=== PATIENT | male | born 1965 | race Caucasian/White ===

== ENCOUNTER 2023-03-07 11:49 | Inpatient (IN) | payer BC ==
--- OUTSIDE RECORDS SUMMARY | 2023-03-07 12:02 | XMS REPORT | Continuity of Care Document ---
:1965 Author Organization [facility] t Address [address] [place] [address] Care Team Providers Name Role Phone PCP, PATIENT DOES NOT HAVE A Primary Care Physician Kerrie Viveros RN, Paty Jones Attending Clinician Unavailable Only, Pedro Luis Db Test Attending Clinician Unavailable Yoana Lyons Attending Clinician YOANA KIM Attending Clinician Unavailable Payers Payer Name Policy Type Policy Number Effective Date Expiration Date S ource Problems Condition Condition Condition Status Onset Resolution Last Treating Co mments Source Name Details Category Date Date Treatment Clinician Date Status Status Disease Active [facility] post total post total 11-10 [place] 00 Me dical t t Branch Allergies, Adverse Reactions, Alerts Allergy Allergy Status Severity Reaction(s) Onset Inactive Treating Comm ents Source Name Type Date Date Clinician NO KNOWN Drug Active Univers ALLERGIE Class ity of [facility] Social History Social Habit Start Date Stop Date Quantity Comments Source History of tobacco Snuff User [facility] use Medical Branch Exposure to Not sure [facility] SARS-CoV-2 (event) Medica l Branch Alcohol intake 2015-11-17 2015-11-17 0 /d [facility] 00:00:00 00:00:00 Medical Branch Sex Ass[birth year] At [birth year] [facility] 00:00:00 00:00:00 Medical Branch Smoking Status Start Date Stop Date Source Never smoker [facility] Branch Medications Ordered Filled Start Stop Current Ordering Indication Dosage Frequency Signature Comments Components Source Medication Medication Date Date Medication? Clinician (SIG) Name Name No known No Univers medications - ity of 06:51: [address] No known No Univers medications 7- ity of 06:51: [address] Procedures This patient has no known procedures. Encounters Start End Encounter Admission Attending Care Care Encounter Source Date/Time Date/Time Type Type Clinicians Facility Department ID 2021-05-08 2021-05-08 Letter SPENSER Viveros [id number] Univers 00:00:00 00:00:00 (Out) Paty SINGH [id number] it y of [facility] [id number] Man as [id number] [address] 2021-05-06 2021-05-06 Laboratory Only, Ang Db Test [facility] [id number] Univers 13:15:00 13:30:00 Only Yoana Kim [id number] ity of [place] [id number] Man as GWENDOLYN?BLEA [phone] [address] MEDICAL OFFICE BUILDING 2021-05-06 2021-05-06 Outpatient R JULIO [facility] [id number] Univers 13:15:00 13:22:28 YOANA cordova o f [facility] Results This patient has no known results.
[2023-03-07] MEDS ORDERED: ONDANSETRON 4 MG/2 ML VIAL ONE (12:19)
[2023-03-07 12:26] LABS: Absolute Lymphocytes (CBC) 0.8 K/uL (0.7-4.9); Hematocrit 44.5 % (39.6-49.0); MCV 96.2 fL (80-100); MPV 6.9 fL (7.6-11.3); Platelets 297 thou/uL (152-406); RBC Red Blood Cell Count 4.62 M/uL (4.33-5.43)
[2023-03-07] MEDS ORDERED: MORPHINE 4 MG/ML SYR ONE ×2 (12:30→14:10)
[2023-03-07 12:44] LABS: Albumin 3.5 g/dL (3.4-5.0); Potassium 4.4 mEq/L (3.5-5.1); Protein, Total 7.1 g/dL (6.4-8.2); Troponin High Sensitivity 7.5 pg/mL (<58.9)
--- NOTE | 2023-03-07 13:09 | RAD REPORT ---
EXAM DESCRIPTION: CTAbdomen Pelvis W Contrast - 03/07/2023 12:59 pm CLINICAL HISTORY: Abdominal pain. vomiting, back pain COMPARISON: No comparisons TECHNIQUE: Biphasic CT imaging of the abdomen and pelvis was performed with 100 ml non-ionic IV cont rast. All CT scans are performed using dose optimization technique as appropriate and may include automated exposure control or mA/KV adjustment according to patient size. FINDINGS: The lung bases are clear. The liver demonstrates diffuse fatty infiltration. Spleen, pancreas, adrenal glands and kidneys are w ithin normal limits. No bowel obstruction, free air, free fluid or abscess. There is thickening of the wall and mucosa of the rectosigmoid colon. This is particularly inferior rectum. Prominent sigmoid diverticulosis coli w ithout diverticulitis. The appendix is normal. No evidence of significant lymphadenopathy. No suspicious bony findings. IMPRESSION: Mild to moderate rectosigmoid wall thickening and minimal surrounding inflammatory alba es would favor colitis. Prominent sigmoid diverticulosis coli also present. Colonoscopy would be quang mmended for direct visualization and to exclude malignancy. Diffuse fatty liver.
--- NOTE | 2023-03-07 13:56 | EDPHYS ---
Physician Documentation [facility] Name: Thomas Hadley Age: 57 yrs Sex: Male : 1965 Arrival Date: 03/07/2023 Time: 11:49 Bed 15 Private MD: ED Physician Iban Hollingsworth HPI: 03/07 13:43 This 57 yrs old Male presents to ER via EMS with complaints of Low Back Pain. rn 13:43 The patient presents with pain that is acute. The symptoms are located in the low back. rn The pain does not radiate. Onset: The symptoms/episode began/occurred 6 day(s) ago. Modifying factors: The patient symptoms are alleviated by nothing, the patient symptoms are aggravated by Vomiting. Associated signs and symptoms: Pertinent positives: abdominal pain, nausea, vomiting, Pertinent negatives: incontinence, urinary retention. Severity of symptoms: At their worst the symptoms were moderate, in the emergency department the symptoms are unchanged. The patient has not experienced similar symptoms in the past. Patient reports 5 to 6 days of abdominal pain/vomiting/diarrhea. Now with low back pain. No fever. Generalized weakness. Reports on antibiotics recently for sinus problems. Sees Dr. Best.. Historical: - Allergies: 12:27 No Known Allergies; ko1 - PMHx: 12:27 Hypertensive disorder; ko1 - Immunization history:: Adult Immunizations up to date. - Social history:: Smoking status: . - Family history:: not pertinent. - Hospitalizations: : No recent hospitalization is reported. ROS: 13:43 Constitutional: Negative for fever, chills, and weight loss, Cardiovascular: Negative rn for chest pain, palpitations, and edema, Respiratory: Negative for shortness of breath, cough, wheezing, and pleuritic chest pain, Abdomen/GI: Positive for abdominal pain/vomiting/diarrhea. No blood in stool. Back: Positive for low back pain MS/Extremity: Negative for injury and deformity, Skin: Negative for injury, rash, and discoloration, Neuro: Positive for generalized weakness Exam: 12:20 ECG was reviewed by the Attending Physician. rn 13:43 Constitutional: This is a well developed, well nourished patient who is awake, alert, rn appears uncomfortable and concerned Head/Face: Normocephalic, atraumatic. ENT: Dry mucous membranes Neck: Trachea midline, no masses palpated, and no cervical lymphadenopathy. Supple, full range of motion without nuchal rigidity, or vertebral point tenderness. No Meningismus. Cardiovascular: Regular rate and rhythm. No pulse deficits. Respiratory: No increased work of breathing, no retractions or nasal flaring. Abdomen/GI: Soft, mid abdominal tenderness. No rebound Back: No spinal tenderness. No costovertebral tenderness. Skin: Warm, dry MS/ Extremity: Pulses equal, no cyanosis. Neurovascular intact. Full, normal range of motion. Equal circumference. Neuro: Awake and alert, GCS 15 Vital Signs: 12:00 BP 134 / 96; Pulse 120; Resp 18; Temp 98.1(O); Pulse Ox 99% ; ko1 12:38 BP 135 / 103; Pulse 113; Resp 18; Pulse Ox 98% ; ko1 13:25 BP 144 / 95; Pulse 99; Resp 16; Pulse Ox 100% ; ko1 14:26 Weight 117.93 kg; ap3 MDM: 11:52 Patient medically screened. rn 13:48 Differential diagnosis: UTI, Colitis, diverticulitis, aneurysm, enteritis, dehydration, internet technology manager kidney injury. Data reviewed: vital signs, nurses notes, lab test result(s), radiologic studies, CT scan, and as a result, I will admit patient. Consideration of Admission/Observation Patient was admitted/placed on observation. Escalation of care including admission/observation considered. Counseling: I had a detailed discussion with the patient and/or guardian regarding the historical points, exam findings, and any diagnostic results supporting the discharge/admit diagnosis, lab results, radiology results, the need for further work-up and treatment in the hospital. Response to treatment: the patient's symptoms have markedly improved after treatment, and as a result, I will admit patient. ED course: Patient with colitis on CAT scan, which fits with clinical picture of vomiting and diarrhea, has also resulted in acute kidney injury. Lactate and blood cultures ordered. Antibiotics ordered and to be given after blood cultures obtained. Patient heart rate improved with fluid administration. Will give a second liter of bolus.. 15:46 ED course: After fluids initiated, heart rate down to 82 and blood pressure of 158/98. rn Sepsis reevaluation complete. 03/07 11:53 Order name: CBC with Diff; Complete Time: 13:25 rn 03/07 11:53 Order name: CMP; Complete Time: 13:25 rn 03/07 11:53 Order name: Lipase; Complete Time: 13:25 rn 03/07 11:53 Order name: Urinalysis w/ reflexes rn 03/07 11:53 Order name: Troponin High Sensitivity; Complete Time: 13:25 rn 03/07 13:26 Order name: Blood Culture Adult (2) 03/07 13:26 Order name: Lactate w/ 2H reflex if indic.; Complete Time: 14:25 rn 03/07 14:24 Order name: C.difficile hb 03/07 14:24 Order name: Stool Culture hb 03/07 14:24 Order name: Fecal Leukocyte Stain 03/07 14:24 Order name: Ova And Parasites 03/07 15:53 Order name: Stool Culture EDNY 03/07 15:53 Order name: Fecal Leukocyte Stain EDNY 03/07 15:53 Order name: Ova and Parasites EDNY 03/07 17:26 Order name: Lactate Sepsis 2 HR Follow-up EDNY 03/07 11:53 Order name: CT Abd/Pelvis - IV Contrast Only; Complete Time: 13:25 03/07 11:53 Order name: EKG; Complete Time: 11:53 03/07 11:53 Order name: IV Saline Lock; Complete Time: 12:20 rn 03/07 11:53 Order name: Labs collected and sent; Complete Time: 12:20 03/07 11:53 Order name: EKG - Nurse/Tech; Complete Time: 12:12 rn EC:20 Rate is 109 beats/min. Rhythm is regular. QRS [place] is Normal. MS interval is normal. rn QRS interval is normal. QT interval is normal. No Q waves. T waves are Normal. No ST changes noted. Clinical impression: Sinus tachycardia. Interpreted by me. Reviewed by me. Administered Medications: 12:20 Drug: NS 0.9% IV 1000 ml IV at 1 bolus Per protocol; 1000 mL bolus Route: IV; Rate: 1 jl7 bolus; Site: left antecubital; 13:30 Follow up: Response: No adverse reaction; IV Status: Completed infusion; IV Intake: ko1 1000ml 12:20 Drug: Ondansetron IVP 4 mg IVP once; over 2 minutes Route: IVP; Site: left antecubital; jl7 13:00 Follow up: Response: Vomiting decreased ko1 12:35 Drug: morphine IVP or IV 4 mg IVP once over 4 mins Route: IVP; Infused Over: 4 mins; ko1 Site: left antecubital; 13:00 Follow up: Response: Pain is unchanged, physician notified ko1 13:59 Drug: Piperacillin-Tazobactam IVPB 3.375 grams IVPB once over 60 mins; (mix in NS 100 ko1 mL) Route: IVPB; Infused Over: 60 mins; Site: left antecubital; 14:30 Follow up: IV Status: Completed infusion; IV Intake: 250ml ko1 14:00 Drug: morphine IVP or IV 4 mg IVP once over 4 mins Route: IVP; Infused Over: 4 mins; ko1 Site: left antecubital; 14:20 Follow up: Response: Pain is decreased ko1 14:11 Drug: NS 0.9% IV 1000 ml IV at 1000 ml once Route: IV; Rate: 1000 ml; Site: left ko1 antecubital; 14:50 Drug: NS 0.9% IV (30 ml/kg) 30 ml/kg IV at bolus once; Sepsis Protocol, subtract ko1 boluses already given Route: IV; Rate: bolus; Site: left antecubital; Disposition Summary: 03/07/23 13:55 Hospitalization Ordered Notes: Hospitalization Status: Inpatient Admission rn Provider: Sylvester Hollingsworth rn Location: Telemetry/[facility] (Inpatient) rn Condition: Stable rn Problem: new rn Symptoms: have improved rn Bed/Room Type: Standard rn Room Assignment: 202(03/07/23 16:06) bd Diagnosis - Infectious gastroenteritis and colitis, unspecified rn - Acute kidney failure, unspecified rn - Dehydration rn Forms: - Medication Reconciliation Form rn - SBAR form rn - Leadership Thank You Letter rn Signatures: Dispatcher [employer] Jolanta aHdley Roman, MD MD rn Leal, Jahala, RN RN jl7 Danielle Morris RN RN ko1 Corrections: (The following items were deleted from the chart) 16:06 13:55 rn bd
--- NOTE | 2023-03-07 13:56 | ER ---
Nurse's Notes [facility] Name: Thomas Hadley Age: 57 yrs Sex: Male : 1965 Arrival Date: 03/07/2023 Time: 11:49 Bed 15 Private MD: Diagnosis: Infectious gastroenteritis and colitis, unspecified;Acute kidney failure, unspecified;Dehydration Presentation: 03/07 12:00 Chief complaint: EMS states: low back pain, nausea and vomiting, weakness. Coronavirus ko1 screen: At this time, the client does not indicate any symptoms associated with coronavirus-19. Ebola Screen: No symptoms or risks identified at this time. Initial Sepsis Screen: Does the patient meet any 2 criteria? No. Patient's initial sepsis screen is negative. Does the patient have a suspected source of infection? No. Patient's initial sepsis screen is negative. Risk Assessment: Do you want to hurt yourself or someone else? Patient reports no desire to harm self or others. Onset of symptoms was March 07, 2023. 12:00 Method Of Arrival: EMS: [facility] ko1 12:00 Acuity: YUNG 2 ko1 Triage Assessment: 12:27 General: Appears distressed, ill, Behavior is cooperative, appropriate for age. Pain: ko1 Complains of pain in lumbar area, low back area and left low back. Historical: - Allergies: 12:27 No Known Allergies; ko1 - PMHx: 12:27 Hypertensive disorder; ko1 - Immunization history:: Adult Immunizations up to date. - Social history:: Smoking status: . - Family history:: not pertinent. - Hospitalizations: : No recent hospitalization is reported. Screenin:39 [facility] ED Fall Risk Assessment (Adult) History of falling in the last 3 months, ko1 including since admission Yes- single mechanical fall (1 pt) Confusion or Disorientation No (0 pts) Intoxicated or Sedated No (0 pts) Impaired Gait No (0 pts) Mobility Assist Device Used No (0 pt) Altered Elimination No (0 pt) Score/Fall Risk Level 0 - 2 = Low Risk Oriented to surroundings, Maintained a safe environment, Educated pt \T\ family on fall prevention, incl call for assistance when getting out of bed, Assessed \T\ reinforced patient's understanding of fall precautions, Provided non-skid footwear, Hourly rounding (assess needs \T\ fall precautionary measures) done, Used ambulatory aids as needed (educated on \T\ assisted with), Used gait belt as appropriate. Abuse screen: Denies threats or abuse. Denies injuries from another. Nutritional screening: Has had N/V for 3 or more days. Tuberculosis screening: No symptoms or risk factors identified. Assessment: 12:39 Neuro: No deficits noted. Cardiovascular: Rhythm is sinus tachycardia. Respiratory: No ko1 deficits noted. GI: Reports diarrhea, nausea, vomiting. : No deficits noted. EENT: No deficits noted. Derm: No deficits noted. Musculoskeletal: No deficits noted. 16:25 Reassessment: attempted to call report, someone will call me back. ko1 Vital Signs: 12:00 BP 134 / 96; Pulse 120; Resp 18; Temp 98.1(O); Pulse Ox 99% ; ko1 12:38 BP 135 / 103; Pulse 113; Resp 18; Pulse Ox 98% ; ko1 13:25 BP 144 / 95; Pulse 99; Resp 16; Pulse Ox 100% ; ko1 14:26 Weight 117.93 kg; ap3 ED Course: 11:52 Patient arrived in ED. rn 11:52 Iban Hollingsworth MD is Attending Physician. rn 11:55 Danielle Morris, SUHA is Primary Nurse. ko1 12:18 Initial lab(s) drawn, by me, sent to lab. Inserted saline lock: 20 gauge in left jl7 antecubital area, using aseptic technique. Blood collected. 12:20 EKG done, by ED staff, reviewed by Iban Hollingsworth MD. jl7 12:23 Troponin High Sensitivity Sent. ko1 12:23 CBC with Diff Sent. ko1 12:23 CMP Sent. ko1 12:23 Lipase Sent. ko1 12:27 Triage completed. ko1 12:27 Arm band placed on right wrist. Patient placed in an exam room, on a stretcher, on ko1 potline monitor, on pulse oximetry, Patient notified of wait time. 12:39 Patient has correct armband on for positive identification. Bed in low position. Call ko1 light in reach. Side rails up X2. Client placed on continuous cardiac and pulse oximetry monitoring. NIBP monitoring applied. monitor car operator on. Door closed. Noise minimized. Lights dimmed. Warm blanket given. 13:01 CT Abd/Pelvis - IV Contrast Only In Process Unspecified. EDMS 13:54 Lactate w/ 2H reflex if indic. Sent. ko1 13:54 Blood Culture Adult (2) Sent. ko1 13:55 Sylvester Hollingsworth MD is Hospitalizing Provider. rn 17:36 No provider procedures requiring assistance completed. Patient admitted, IV remains in ko1 place. 17:36 Provided Education on: NA. ko1 Administered Medications: 12:20 Drug: NS 0.9% IV 1000 ml IV at 1 bolus Per protocol; 1000 mL bolus Route: IV; Rate: 1 jl7 bolus; Site: left antecubital; 13:30 Follow up: Response: No adverse reaction; IV Status: Completed infusion; IV Intake: ko1 1000ml 12:20 Drug: Ondansetron IVP 4 mg IVP once; over 2 minutes Route: IVP; Site: left antecubital; jl7 13:00 Follow up: Response: Vomiting decreased ko1 12:35 Drug: morphine IVP or IV 4 mg IVP once over 4 mins Route: IVP; Infused Over: 4 mins; ko1 Site: left antecubital; 13:00 Follow up: Response: Pain is unchanged, physician notified ko1 13:59 Drug: Piperacillin-Tazobactam IVPB 3.375 grams IVPB once over 60 mins; (mix in NS 100 ko1 mL) Route: IVPB; Infused Over: 60 mins; Site: left antecubital; 14:30 Follow up: IV Status: Completed infusion; IV Intake: 250ml ko1 14:00 Drug: morphine IVP or IV 4 mg IVP once over 4 mins Route: IVP; Infused Over: 4 mins; ko1 Site: left antecubital; 14:20 Follow up: Response: Pain is decreased ko1 14:11 Drug: NS 0.9% IV 1000 ml IV at 1000 ml once Route: IV; Rate: 1000 ml; Site: left ko1 antecubital; 14:50 Drug: NS 0.9% IV (30 ml/kg) 30 ml/kg IV at bolus once; Sepsis Protocol, subtract ko1 boluses already given Route: IV; Rate: bolus; Site: left antecubital; Medication: 17:36 VIS not applicable for this client. ko1 Intake: 13:30 IV: 1000ml; Total: 1000ml. ko1 14:30 IV: 250ml; Total: 1250ml. ko1 Output: 12:38 Stool: 1 (Loose Stool) ; Total: 0ml. ko1 13:26 Gastric: 100ml (Emesis); Total: 100ml. ko1 Outcome: 13:55 Decision to Hospitalize by Provider. rn 17:35 Patient left the ED. ko1 17:36 Admitted to Tele accompanied by tech, room 202, with chart, ko1 17:36 Condition: improved 17:36 Instructed on the need for admit, Demonstrated understanding of instructions, Signatures: Dispatcher [employer] EDMS Iban Hollingsworth MD MD rn Leal, Jahala RN RN jl7 Chayo Hickey RN RN ap3 Danielle Morris RN RN ko1
[2023-03-07] MEDS ORDERED: PIPERACIL/TAZO 3.375 GM VIAL IV ONE (13:57)
[2023-03-07] MEDS ORDERED: NA CHLORIDE 0.9% 250 ML ONE ×2 (13:59→14:55)
[2023-03-07] MEDS ORDERED: NA CHLORIDE 0.9% 1,000 ML ONE (14:27)
[2023-03-07] MEDS: Ringers Lactate 1,000 ML IV SCH (15:52)
[2023-03-07] MEDS ORDERED: MORPHINE 2 MG/ML SYR IV PRN (15:52)
[2023-03-07] MEDS: HYDROMORPHONE HCL 1 MG/ML INJ IV PRN ×2 (16:05→20:15)
--- NOTE | 2023-03-07 16:30 | P.HP ---
Certification for Inpatient Patient admitted to: Inpatient With expected LOS: >2 Midnights Patient will require the following post-hospital care: None Practitioner: I am a practitioner with admitting privileges, knowledge of patient current condition, hospital course, and medical plan of care. Services: Services provided to patient in accordance with Admission requirements found in Title 42 Section 412.3 of the Code of Federal Regulations Patient History Date of Service: 03/07/23 Reason for admission: Rectosigmoid colitis History of Present Illness: 57-year-old male with history of hypertension presents to the emergency department with chief complaint of 7 days of nausea/vomiting/diarrhea. He had a near syncopal episode while coming out of the bathroom and fell on his back onto a couch with a keyboard on it is also complaining of mid low back pain. He was recently on antibiotics for sinusitis which has not resolved. He was evaluated in the emergency department his labs were significant for leukocytosis with white blood cell count of 15.7, sodium 126 chloride 94 bicarb 15 glucose 169 creatinine 1.43 GFR 57 AST 117 ALT 95 lipase [address] abdomen pelvis with IV contrast was performed revealed mild to moderate rectosigmoid wall thickening and minimal surrounding inflammatory changes would favor colitis. Prominent sigmoid diverticulosis is also present. Colonoscopy would be recommended for direct visualization to exclude malignancy. Diffuse fatty liver. ED provider wishes to admit for further evaluation management of rectosigmoid colitis/dehydration/chronic acidosis Allergies No Known Allergies Allergy (Unverified 03/07/23 15:51) - Past Medical/Surgical History -: Hypertension -: none Psychosocial/ Personal History: Lives at home with family - Family History Family History: Reviewed- Non-Contributory - Social History Smoking Status: Never smoker Alcohol use: Yes CD- Drugs: No Caffeine use: Yes Place of Residence: Home Review of Systems 10-point ROS is otherwise unremarkable Gastrointestinal: Nausea, Vomiting, Abdominal Pain Musculoskeletal: Back Pain Physical Examination - Physical Exam General: Alert, In no apparent distress, Oriented x3 HEENT: Atraumatic, PERRLA Neck: Supple Respiratory: Clear to auscultation bilaterally, Normal air movement Cardiovascular: Regular rate/rhythm, Normal S1 S2 Gastrointestinal: Normal bowel sounds, No tenderness Musculoskeletal: Tenderness (Back paraspinal tenderness bilaterally) Neurological: Normal speech, Normal affect - Studies Laboratory Data (last 24 hrs) 03/07/23 03/07/23 12:19 12:19 WBC 15.70 H Hgb 15.7 Hct 44.5 Plt Count 297 Sodium 126 L Potassium 4.4 BUN 19 H Creatinine 1.43 H Glucose 169 H Total Bilirubin 1.0 AST 117 H ALT 95 H Alkaline Phosphatase 94 Lipase 135 H Assessment and Plan - Plan Assessment: ZOILA, lactic acidosis secondary to N/V/D, rectosigmoid colitis Possible septic shock secondary to rectosigmoid colitis Hypertension Plan: ZOILA, lactic acidosis secondary to N/V/D, rectosigmoid colitis Possible septic shock secondary to rectosigmoid colitis Lactic acidosis, ZOILA likely primarily secondary to GI losses for the last 7 days Patient also likely contributing with rectosigmoid colitis, being criteria for septic shock Received 30 cc/kg IV fluid bolus in ED as well as blood cultures and lactate level which was 7, repeat lactate pending We will cover with antibiotics Cipro/Flagyl N.p.o. with ice chips tonight, advance as tolerated Test for C. difficile, other stool studies sent given recent antibiotic use for sinusitis Discussed need for outpatient colonoscopy in 6 to 8 weeks after discharge Hypertension Hold oral hypertensive meds at this time DVT PPX: Lovenox Code status: Full Discharge Plan: Home Plan to discharge in: 72 Hours - Advance Directives Does patient have a Living Will: No Does patient have a Durable POA for Healthcare: No - Code Status/Comfort Care Code Status Assessed: Yes (Full code) Critical Care: No Time Spent Managing Pts Care (In Minutes): 55
[2023-03-07] MEDS: METRONIDAZOLE 500mg IVPB 500 MG/100 ML BAG IV SCH (17:00)
[2023-03-07 18:10] VITALS: BMI 31.6
[2023-03-07] MEDS: ONDANSETRON 4 MG/2 ML VIAL IV PRN ×2 (18:36→22:17)
[2023-03-07] MEDS: ENOXAPARIN 40 MG/0.4 ML SQ SCH (18:36)
[2023-03-07] MEDS: CIPROFLOXACIN 400mg IV 400 MG/200 ML BAG IV SCH (20:15)
[2023-03-07 20:45] LABS: Potassium 4.1 mEq/L (3.5-5.1)
[2023-03-08] MEDS: HYDROMORPHONE HCL 1 MG/ML INJ IV PRN ×6 (00:21→20:44)
[2023-03-08] MEDS: METRONIDAZOLE 500mg IVPB 500 MG/100 ML BAG IV SCH ×3 (00:22→16:56)
[2023-03-08] MEDS: Ringers Lactate 1,000 ML IV SCH ×3 (03:09→15:52)
[2023-03-08 04:00] LABS: Absolute Lymphocytes (CBC) 0.8 K/uL (0.7-4.9); Hematocrit 36.9 % (39.6-49.0); Lymphocytes % 10.3 % (15.3-44.8); Platelets 168 thou/uL (152-406)
[2023-03-08 04:14] LABS: Albumin 2.7 g/dL (3.4-5.0); Bilirubin Total 1.2 mg/dL (0.2-1.0); Magnesium 2.3 mg/dL (1.6-2.4); Phosphorus 2.9 mg/dL (2.5-4.9); Protein, Total 5.5 g/dL (6.4-8.2); Thyroid Stimulating Hormone 1.43 uIU/mL (0.358-3.740)
[2023-03-08] MEDS: ONDANSETRON 4 MG/2 ML VIAL IV PRN (04:34)
[2023-03-08 06:03] LABS: UR SODIUM < 15 mmol/L (27-287)
[2023-03-08] MEDS: ENOXAPARIN 40 MG/0.4 ML SQ SCH (09:07)
[2023-03-08] MEDS: LACTOBACILLUS/ACIDOPHILUS TAB PO SCH ×2 (09:09→20:35)
[2023-03-08] MEDS: CIPROFLOXACIN 400mg IV 400 MG/200 ML BAG IV SCH ×2 (10:28→20:36)
[2023-03-08 11:15] LABS: Urine Bacteria None Seen /HPF (<20); Urine Bilirubin NEGATIVE (Negative); Urine Blood Negative (Negative); Urine Clarity Extremely Turbid (Clear); Urine Color Yellow (Yellow); Urine Glucose TRACE (Negative); Urine Protein 1+ (Negative); Urine RBC <5 /HPF (None Seen); Urine Urobilinogen Normal (Normal)
[2023-03-08 11:17] LABS: Specific Gravity > 1.030 (1.005-1.030)
[2023-03-08] MEDS ORDERED: HYDROCODONE/APAP 5/325 MG TAB PO PRN (13:50)
--- NOTE | 2023-03-08 14:10 | P.PN ---
Subjective Date of Service: 03/08/23 Chief Complaint: Rectosigmoid colitis Patient is complaining of low back pain. Diarrhea has resolved. He reports an episode of vomiting this morning. No recorded fever. Physical Examination - Vital Signs Temperature: 98.3 F Blood Pressure: 157/93 Pulse: 85 Respirations: 18 Pulse Ox (%): 96 Assessment And Plan - Plan Physical Exam General: Alert, In no apparent distress, Oriented x3 HEENT: Atraumatic, PERRLA Neck: Supple Respiratory: Clear to auscultation bilaterally, Normal air movement Cardiovascular: Regular rate/rhythm, Normal S1 S2 Gastrointestinal: Normal bowel sounds, No tenderness Musculoskeletal: No tenderness. Neurological: Normal speech, Normal affect, no focal motor deficit. Diagnosis ZOILA Lactic acidosis secondary to N/V/D, Rectosigmoid colitis Hypovolemic shock Hypertension Plan: ZOILA, lactic acidosis secondary to N/V/D, rectosigmoid colitis Possible septic shock secondary to rectosigmoid colitis Lactic acidosis, ZOILA likely primarily secondary to dehydration from GI losses. Received 30 cc/kg IV fluid bolus in ED as well as blood cultures and lactate level which was 7, repeat lactate significantly improved. Continue Cipro/Flagyl. No diarrhea today, no sample for C. difficile. C. difficile canceled. Advance diet to clear liquid. Discussed need for outpatient colonoscopy in 6 to 8 weeks after discharge Hypertension Resume oral hypertensive meds. Fall/syncope Back pain Syncope and fall likely secondary to dehydration. Blood pressure has been stable Analgesics for back pain Increase activity as tolerated. DVT PPX: Lovenox Code status: Full Discharge Plan: Home
[2023-03-08] MEDS: AMLODIPINE 5 MG TAB PO SCH (15:16)
[2023-03-08] MEDS: SERTRALINE HCL 50 MG TAB PO SCH (15:16)
[2023-03-08] MEDS: VALSARTAN 160 MG TAB PO SCH (15:17)
[2023-03-09] MEDS: METRONIDAZOLE 500mg IVPB 500 MG/100 ML BAG IV SCH ×3 (00:47→18:17)
[2023-03-09] MEDS: Ringers Lactate 1,000 ML IV SCH ×4 (00:47→20:14)
[2023-03-09] MEDS: HYDROMORPHONE HCL 1 MG/ML INJ IV PRN ×4 (00:56→20:12)
[2023-03-09] MEDS: ONDANSETRON 4 MG/2 ML VIAL IV PRN ×3 (01:27→18:16)
[2023-03-09 03:48] LABS: Absolute Lymphocytes (CBC) 0.9 K/uL (0.7-4.9); Hematocrit 33.8 % (39.6-49.0); Lymphocytes % 11.3 % (15.3-44.8); MCV 96.6 fL (80-100); MPV 7.2 fL (7.6-11.3); Platelets 129 thou/uL (152-406)
[2023-03-09 04:02] LABS: Albumin 2.6 g/dL (3.4-5.0); Bilirubin Total 1.1 mg/dL (0.2-1.0); Potassium 3.8 mEq/L (3.5-5.1); Protein, Total 5.6 g/dL (6.4-8.2)
[2023-03-09] MEDS ORDERED: POTASSIUM CL SA 10 MEQ TAB PO ONE (09:00)
[2023-03-09] MEDS: ENOXAPARIN 40 MG/0.4 ML SQ SCH (10:47)
[2023-03-09] MEDS: CIPROFLOXACIN 400mg IV 400 MG/200 ML BAG IV SCH ×2 (10:47→20:11)
[2023-03-09] MEDS: AMLODIPINE 5 MG TAB PO SCH (10:48)
[2023-03-09] MEDS: LACTOBACILLUS/ACIDOPHILUS TAB PO SCH ×2 (10:49→20:12)
[2023-03-09] MEDS: VALSARTAN 160 MG TAB PO SCH (10:49)
[2023-03-09] MEDS: SERTRALINE HCL 50 MG TAB PO SCH (10:49)
[2023-03-09 12:26] VITALS: O2SAT 98
--- NOTE | 2023-03-09 17:29 | EKG ---
Test Date: 2023-03-07 Test Time: 12:07:52 Molder Apprentice: SASCHA MEASUREMENT RESULTS: Intervals: Rate: 109 MT: 164 QRSD: 86 QT: 332 QTc: 447 [place]: P: 71 MT: 164 QRS: 67 T: 68 INTERPRETIVE STATEMENTS: Sinus tachycardia Otherwise normal ECG Compared to ECG 02/06/2023 13:08:22 Sinus rhythm no longer present Electronically Signed On 03-09-23 17:23:19 SANE RN by David Dong
[2023-03-09] MEDS ORDERED: SODIUM CHLORIDE 0.9% 10ML INJ IV PRN (17:33)
--- NOTE | 2023-03-09 17:33 | P.PN ---
Subjective Date of Service: 03/09/23 Chief Complaint: Rectosigmoid colitis Patient states his low back pain is better. He reports an episode of vomiting this afternoon, otherwise he was tolerating liquid diet. Physical Examination - Vital Signs Temperature: 98.6 F Blood Pressure: 154/90 Pulse: 116 Respirations: 16 Pulse Ox (%): 96 Assessment And Plan - Plan Physical Exam General: Alert, In no apparent distress, Oriented x3 HEENT: Atraumatic, PERRLA Neck: Supple Respiratory: Clear to auscultation bilaterally, Normal air movement Cardiovascular: Regular rate/rhythm, Normal S1 S2 Gastrointestinal: Normal bowel sounds, No tenderness Musculoskeletal: No tenderness. Neurological: Normal speech, Normal affect, no focal motor deficit. Diagnosis ZOILA Lactic acidosis secondary to N/V/D, Rectosigmoid colitis Hypovolemic shock Hypertension Plan: ZOILA, lactic acidosis secondary to N/V/D, rectosigmoid colitis Possible septic shock secondary to rectosigmoid colitis Lactic acidosis, ZOILA likely primarily secondary to dehydration from GI losses. Received 30 cc/kg IV fluid bolus in ED as well as blood cultures and lactate level which was 7, repeat lactate significantly improved. Continue Cipro/Flagyl. No more diarrhea. No sample for C. difficile Advance diet to clear liquid. Discussed need for outpatient colonoscopy in 6 to 8 weeks after discharge. Trial of PPI for gastritis given persistent nausea. Hypertension Resume oral hypertensive meds. Fall/syncope Back pain Syncope and fall likely secondary to dehydration. Blood pressure has been stable Analgesics for back pain Activity as tolerated. DVT PPX: Lovenox Code status: Full Discharge Plan: Home
[2023-03-09 17:39] LABS: Potassium 3.8 mEq/L (3.5-5.1)
[2023-03-09] MEDS ORDERED: AMLODIPINE 5 MG TAB PO ONE (18:57)
[2023-03-09] MEDS: PANTOPRAZOLE 40 MG INJ IVP SCH (20:11)
[2023-03-10] MEDS: METRONIDAZOLE 500mg IVPB 500 MG/100 ML BAG IV SCH ×2 (01:26→09:00)
[2023-03-10] MEDS: HYDROMORPHONE HCL 1 MG/ML INJ IV PRN (01:34)
[2023-03-10 03:01] LABS: Absolute Lymphocytes (CBC) 0.9 K/uL (0.7-4.9); Hematocrit 35.3 % (39.6-49.0); MCV 95.9 fL (80-100); MPV 7.2 fL (7.6-11.3); Platelets 117 thou/uL (152-406); RBC Red Blood Cell Count 3.68 M/uL (4.33-5.43)
[2023-03-10 03:21] LABS: Albumin 2.7 g/dL (3.4-5.0); Bilirubin Total 1.2 mg/dL (0.2-1.0); Magnesium 1.9 mg/dL (1.6-2.4); Phosphorus 2.5 mg/dL (2.5-4.9); Potassium 3.9 mEq/L (3.5-5.1); Protein, Total 5.9 g/dL (6.4-8.2)
[2023-03-10] MEDS: Ringers Lactate 1,000 ML IV SCH (07:52)
[2023-03-10] MEDS ORDERED: AMLODIPINE 10 MG TAB PO SCH (09:00)
[2023-03-10] MEDS: LACTOBACILLUS/ACIDOPHILUS TAB PO SCH (09:00)
[2023-03-10] MEDS: ENOXAPARIN 40 MG/0.4 ML SQ SCH (09:00)
[2023-03-10] MEDS ORDERED: POTASSIUM CL SA 10 MEQ TAB PO ONE (09:00)
[2023-03-10] MEDS: PANTOPRAZOLE 40 MG INJ IVP SCH (09:00)
[2023-03-10] MEDS: CIPROFLOXACIN 400mg IV 400 MG/200 ML BAG IV SCH (09:00)
[2023-03-10] MEDS: SERTRALINE HCL 50 MG TAB PO SCH (09:00)
[2023-03-10] MEDS: VALSARTAN 160 MG TAB PO SCH (09:00)
--- NOTE | 2023-03-10 09:04 | P.DS ---
Admission Date: 03/07/23 Discharge Date: 03/10/23 Disposition: ROUTINE DISCHARGE Discharge Condition: FAIR Reason for Admission: Rectosigmoid colitis Brief History of Present Illness: 57-year-old male with history of hypertension presents to the emergency department with chief complaint of 7 days of nausea/vomiting/diarrhea. He had a near syncopal episode while coming out of the bathroom and fell on his back onto a couch with a keyboard on it so he was also complaining of mid low back pain. He was recently on antibiotics for sinusitis which has not resolved. He was evaluated in the emergency department his labs were significant for leukocytosis with white blood cell count of 15.7, sodium 126 chloride 94 bicarb 15 glucose 169 creatinine 1.43 GFR 57 AST 117 ALT 95 lipase [address] abdomen pelvis with IV contrast was performed revealed mild to moderate rectosigmoid wall thickening and minimal surrounding inflammatory changes would favor colitis. Prominent sigmoid diverticulosis is also present. Diffuse fatty liver. Patient was admitted for further management. Hospital Course: Diagnosis ZOILA Lactic acidosis secondary to N/V/D, Rectosigmoid colitis Hypovolemic shock Hypertension Hyponatremia Patient was admitted to the medical floor and the following medical problems addressed: ZOILA, lactic acidosis secondary to N/V/D, rectosigmoid colitis Lactic acidosis, ZOILA likely primarily secondary to dehydration from GI losses. Received 30 cc/kg IV fluid bolus in ED as well as blood cultures and lactate level which was 7, repeat lactate significantly improved. Pt treated with IV Cipro/Flagyl. No more diarrhea so he could not provide sample for C. difficile Patient tolerated diet advancement. He tolerated full liquid diet. Discussed need for outpatient colonoscopy in 6 to 8 weeks after discharge. Trial of PPI for gastritis given persistent nausea which improved. Hypertension Continued oral hypertensive meds. Fall/syncope Back pain Syncope and fall likely secondary to dehydration. Blood pressure has been stable He was given analgesics for back pain Vital Signs/Physical Exam: Temp Pulse Resp BP Pulse Ox 97.9 F 73 18 154/80 H 97 03/09/23 21:37 03/09/23 21:37 03/10/23 02:04 03/10/23 04:55 03/10/23 02:04 General: Alert, In no apparent distress, Oriented x3 HEENT: Mucous membr. moist/pink Neck: JVD not distended Respiratory: Clear to auscultation bilaterally, Normal air movement Cardiovascular: No edema, Regular rate/rhythm, Normal S1 S2 Gastrointestinal: Normal bowel sounds, Soft and benign, Non-distended Musculoskeletal: No swelling Integumentary: No rashes, No cyanosis Neurological: Normal strength at 5/5 x4 extr Laboratory Data at Discharge: WBC 6.60 thou/uL (4.3-10.9) 03/10/23 02:24 Hgb 12.5 g/dL (13.6-17.9) L 03/10/23 02:24 Hct 35.3 % (39.6-49.0) L 03/10/23 02:24 Plt Count 117 thou/uL (152-406) L 03/10/23 02:24 Sodium 129 mEq/L (136-145) L 03/10/23 02:24 Potassium 3.9 mEq/L (3.5-5.1) 03/10/23 02:24 BUN 7 mg/dL (7-18) 03/10/23 02:24 Creatinine 0.78 mg/dL (0.70-1.30) 03/10/23 02:24 Glucose 103 mg/dL (74-106) 03/10/23 02:24 Phosphorus 2.5 mg/dL (2.5-4.9) 03/10/23 02:24 Magnesium 1.9 mg/dL (1.6-2.4) 03/10/23 02:24 Total Bilirubin 1.2 mg/dL (0.2-1.0) H 03/10/23 02:24 AST 49 U/L (15-37) H 03/10/23 02:24 ALT 44 U/L (16-61) 03/10/23 02:24 Alkaline Phosphatase 67 U/L (45-117) 03/10/23 02:24 Lipase 135 U/L (13-75) H 03/07/23 12:19 Home Medications: Amlodipine Besylate 5 mg PO DAILY 03/07/23 Sertraline [Zoloft*] 50 mg PO DAILY 03/07/23 Valsartan 320 mg PO DAILY 03/07/23 Ciprofloxacin HCl [Cipro] 500 mg PO BID #10 tab 03/10/23 Hydrocodone 5/APAP 325 [[place] 5/325*] 1 tab PO Q6H PRN #15 tab 03/10/23 Pantoprazole Sodium [Protonix] 40 mg PO DAILY #30 tab 03/10/23 metroNIDAZOLE [Metronidazole] 500 mg PO TID #15 tab 03/10/23 New Medications: Ciprofloxacin HCl [Cipro] 500 mg PO BID #10 tab metroNIDAZOLE [Metronidazole] 500 mg PO TID #15 tab Hydrocodone 5/APAP 325 [[place] 5/325*] 1 tab PO Q6H PRN #15 tab PRN Reason: Pain Scale 5-7 (Moderate) Pantoprazole Sodium [Protonix] 40 mg PO DAILY #30 tab Followup: Eveline Flores DO [Primary Care Provider] - Time spent managing pt's care (in minutes): 36
[2023-03-10 10:35] VITALS: BP 168/95; TEMP 97.4
== END 2023-03-10 10:29 | disposition home or self-care (01) | DRG 682 ==
LOC: ER 11:49 → ERHOLD 14:20 → 2ND 16:57
PROVIDERS: ADMIT Hospitalist; ATTEND Internal Medicine
DX: N17.9 Acute kidney failure, unspecified (principal); R57.1 Hypovolemic shock; A09 Infectious gastroenteritis and colitis, unspecified; E87.1 Hypo-osmolality and hyponatremia; E87.20 Acidosis, unspecified; I10 Essential (primary) hypertension; E86.0 Dehydration; Z79.899 Other long term (current) drug therapy
CPT/HCPCS: 36415; 74177; 80048; 80053; 81001; 83605; 83690; 83735; 83930; 83935; 84100; 84132; 84300; 84439; 84443; 84484; 85025; 87040; 93005; 96361; 96365; 96375; 99285; J0744; J1170; J1650; J2405; J2543; J7030; J7050; J7120; Q9967

== ENCOUNTER 2023-04-08 09:42 | Day surgery (SDC) | payer BC ==
[2023-04-08] MEDS: OXYMETAZOLINE HCL 0.05% 15ML NAS ONE ×5 (10:05→13:27)
[2023-04-08] MEDS ORDERED: Ringers Lactate 1,000 ML IV ONE (10:26)
[2023-04-08] MEDS ORDERED: ONDANSETRON 4 MG/2 ML VIAL ONE (11:08)
[2023-04-08] MEDS ORDERED: ROCURONIUM 50 MG/5 ML VIAL IV ONE (11:08)
[2023-04-08] MEDS ORDERED: MIDAZOLAM HCL 2 MG/2 ML INJ ONE (11:08)
[2023-04-08] MEDS ORDERED: LIDOCAINE 1% MPF 5 ML VIAL ONE (11:08)
[2023-04-08] MEDS ORDERED: propofoL 200 MG/20 ML VIAL IV ONE (11:08)
[2023-04-08] MEDS ORDERED: dexAMETHasone 10 MG/ML VIAL ONE (11:08)
[2023-04-08] MEDS ORDERED: KETAMINE HCL IN 0.9 % NACL 50 MG/5 ML SYRINGE IV ONE (11:08)
[2023-04-08] MEDS ORDERED: FENTANYL CITR 100 MCG/2 ML ONE (11:08)
[2023-04-08] MEDS ORDERED: BACITRACIN OINTMENT 14 GM TUBE TOP ONE (12:46)
[2023-04-08] MEDS ORDERED: LIDOCAINE HCL/EPINEPHRINE 20 ML MDV ONE (12:46)
[2023-04-08] MEDS ORDERED: OXYMETAZOLINE HCL 0.05% 15ML NAS ONE (13:30)
[2023-04-08] MEDS ORDERED: HYDRALAZINE HCL 20 MG/ML VIAL ONE (13:31)
[2023-04-08] MEDS: HYDROMORPHONE HCL 1 MG/ML INJ ONE ×4 (14:45→15:05)
--- NOTE | 2023-04-08 14:47 | P.OP ---
Date of Service: 04/08/23 Preoperative Diagnosis: Chronic maxillary sinusitis Postoperative diagnosis: Same Procedure: Bilateral nasal endoscopy with maxillary antrostomy and removal of tissue Surgeon: Shannon Best MD Irrigation Installation Specialist: None Indication for procedure: The patient presented with longstanding right maxillary sinus opacification with complaint of postnasal drainage. Preoperative CT demonstrated a moderate size mucous retention cyst in the floor of the left sphenoid sinus which was increased in size compared to earlier st udies a few years ago. The risks, benefits, and alternatives to surgical procedure were discussed with the patient and/or family and they agreed to proceed. Surgical findings: Small to medium mucous retention cyst in the floor of the left maxillary sinus. Large mucous retention cyst with abnormal contents and and possible fungal ball within the mucous retention cyst IV Fluids: Crystalloid, 600 mL Implants/Packing: Posisep dissolvable nasal dressing to both nasal cavities Estimated Blood Loss: 30ml Complications: None Description of procedure in detail: The patient was brought to the operating room. They were placed under general anesthesia via oral endotracheal tube. The head of bed was turned 90 degrees. The nasal hairs were trimmed. The nasal cavity was examined with the nasal speculum and headlight with the following findings: No significant abnormalities or anatomic variations. The nasal cavity was packed with Afrin-soaked pledgets in preparation for the procedure. The patient was draped in a standard fashion for nasal surgery. A 0 degree endoscope was then used to perform a nasal endoscopy with notable findings of normal-appearing middle meatus. The right and left uncinate process was injected with 1% lidocaine with epinephrine. The right and left middle turbinate was medialized using a [place]. The right and left uncinate processes were removed using a backbiter and 90 degree [place]. The right and the left middle meatus was packed with Afrin- soaked pledgets to control hemostasis. The left maxillary antrostomy was enlarged by removal of the soft tissue and small bone fragments to allow visualization with a 30 and 70 degree endoscope. With a 70 degree endoscope, a moderate-sized mucous retention cyst was noted in the floor of the maxillary si nus. A large front to back frontal giraffe forceps was used to grasped with the cyst wall. A portion of the cyst was removed but after collapse of the wall, additional removal was not feasible due to limitations of anatomy and reach of the instrumentation into the floor of the sinus. Due to minimal symptoms and small findings on this time side, I elected not to significantly enlarged the antrostomy and packed the middle meatus with Afrin-soaked pledgets. Attention was then turned to the right side where the antrostomy was enlarged using straight and 90 degree forceps. The large maxillary cyst was visualized and portions were removed with 90 degree [place] and Hueweiser maxillary forceps. The middle meatus and sinus were intermittently suctioned to allow for better visualization. A large portion of the cyst wall was removed with findings of inclusive debris, partially suspicious for fungal ball. This large portion was sent along with small tissue fragments to pathology for frozen section. After removal of the tissue from the maxillary sinus and refining of the maxillary antrostomy, the right maxillary sinus was thoroughly irrigated with multiple aliquots of sterile saline. A 70 degree endoscope was used to visualize the sinus which then appeared to be clear and clean. A Posisep dissolvable nasal dressing was cut and positioned into the right and left middle meatus and thoroughly saturated with saline. The nasopharynx was thoroughly suctioned and the nasal cavities were inspected. There was no evidence of any additional bleeding. The procedure was concluded. At the conclusion of the procedure, all pledget counts were confirmed correct. The patient was returned to care of anesthesia for awakening extubation in the operating room which proceeded without difficulty. The patient was transported to the recovery room and will be discharged home later today in the care of their family. The patient is given written and verbal instructions regarding the importance of saline irrigations and nasal precautions.
[2023-04-08 15:05] VITALS: O2SAT 94
[2023-04-08] MEDS ORDERED: MEPERIDINE HCL 25 MG/ML SYR ONE (15:08)
[2023-04-08 15:33] VITALS: TEMP 96.8
[2023-04-08 15:50] VITALS: BP 146/87
== END 2023-04-08 15:46 | disposition home or self-care (01) ==
LOC: OR 09:42
PROVIDERS: ATTEND Otolaryngology
PROC: 099Q8ZZ Drainage of Right Maxillary Sinus, Via Natural or Artificial Opening Endoscopic (ICD-10-PCS; 2023-04-08)
PROC: 099R8ZZ Drainage of Left Maxillary Sinus, Via Natural or Artificial Opening Endoscopic (ICD-10-PCS; principal; 2023-04-08 10:30)
DX: J32.0 Chronic maxillary sinusitis (principal); I10 Essential (primary) hypertension; F41.9 Anxiety disorder, unspecified; D64.9 Anemia, unspecified; K76.0 Fatty (change of) liver, not elsewhere classified
CPT/HCPCS: 88305; 31267; J0360; J2704; J2001; J2250; J3010; J1100; J2175; J1170 ×2; J2405; J7120; 88304

== ENCOUNTER 2023-08-29 08:16 | Emergency (ER) | payer BC ==
[2023-08-29] MEDS ORDERED: ONDANSETRON 4 MG/2 ML VIAL ONE (08:48)
[2023-08-29] MEDS ORDERED: NA CHLORIDE 0.9% 1,000 ML ONE (08:49)
[2023-08-29 09:10] LABS: Absolute Eosinophils 0.1 K/uL (0-0.5); Absolute Lymphocytes (CBC) 0.9 K/uL (0.7-4.9); Absolute Monocytes 0.6 K/uL (0.1-1.3); Basophils % 0.7 % (0-1.3); Eosinophils % 1.1 % (0-4.4); Hematocrit 52.6 % (39.6-49.0); Hemoglobin 17.9 g/dL (13.6-17.9); Lymphocytes % 13.2 % (15.3-44.8); MCH 33.4 pg (27.0-35.0); MCV 98.4 fL (80-100); MPV 7.8 fL (7.6-11.3); Monocytes % 9.6 % (3.3-12.3); Neutrophils % 75.4 % (41.7-73.7); Nucleated Red Blood Cells % 0.1 % (0-0); Platelets 248 thou/uL (152-406); RBC Red Blood Cell Count 5.35 M/uL (4.33-5.43); Red Cell Distribution Width 18.8 % (12.1-15.2)
[2023-08-29 09:39] LABS: Albumin 3.3 g/dL (3.4-5.0); Albumin/Globulin Ratio 0.8 (1.1-1.8); Anion Gap 11.1 mEq/L (5.0-15.0); Globulin 4.1 g/dL (2.3-3.5); Potassium 3.1 mEq/L (3.5-5.1); Protein, Total 7.4 g/dL (6.4-8.2); Troponin High Sensitivity 10.6 pg/mL (<58.9)
--- NOTE | 2023-08-29 10:10 | RAD REPORT ---
EXAM DESCRIPTION: CT - Abdomen Pelvis W Contrast - 08/29/2023 9:58 am CLINICAL HISTORY: Abdominal pain COMPARISON: February 2023 TECHNIQUE: Computed axial tomography of the abdomen pelvis was obtained. 100 cc Isovue-300 was admin istered intravenously. Oral contrast was not requested which limits evaluation of bowel and appendix All CT scans are performed using dose optimization technique as appropriate and may include automated exposure control or mA/KV adjustment according to patient size. FINDINGS: Fatty liver. Spleen, pancreas, adrenals and kidneys unremarkable Diverticula stem from the colon without evidence of diverticulitis. Colonic wall thickness is normal. Since the prior exam there has been further compression of the T12 vertebral body fracture. It is mar ked and is estimated to be approximately 85% Cement has been placed into the vertebral body. This cement extends into the adjacent discs. Retropul dm of bone into the spinal canal results in an approximately 40% narrowing of the thecal sac. Normal appendix IMPRESSION: Since the prior exam there has been further compression of the T12 vertebral body fractu re. It is marked. Cement has been placed into the vertebral body. This cement extends into the adjace nt discs. Retropulsion of bone into the spinal canal results in an approximately 40% narrowing of the thecal sa c.
--- NOTE | 2023-08-29 10:10 | RAD REPORT ---
EXAM DESCRIPTION: [place] Single View08/29/2023 9:16 am CLINICAL HISTORY: Chest pain COMPARISON: 2022 FINDINGS: The lungs appear clear of acute infiltrate. The heart is normal size IMPRESSION: No acute abnormalities displayed
--- NOTE | 2023-08-29 10:31 | RAD REPORT ---
EXAM DESCRIPTION: US - Abdomen Exam Limited - 08/29/2023 10:21 am CLINICAL HISTORY: Abdominal pain. COMPARISON: CT August 29, 2023 FINDINGS: The gallbladder wall is not thickened. A gallstone is not seen. Gallbladder is probably u pper limits normal in caliber The biliary tree is normal caliber. IMPRESSION: Unremarkable gallbladder ultrasound.
[2023-08-29] MEDS ORDERED: NA CHLORIDE 0.9% 50 ML ONE (11:47)
[2023-08-29] MEDS ORDERED: METOCLOPRAMIDE 10 MG/2mL INJ ONE (11:47)
[2023-08-29] MEDS ORDERED: NA CHLORIDE 0.9% 500 ML ONE (12:21)
[2023-08-29] MEDS ORDERED: KETOROLAC 30 MG/ML INJ ONE (12:21)
--- NOTE | 2023-08-29 12:39 | ER ---
Nurse's Notes [facility] Name: Thomas Hadley Age: 58 yrs Sex: Male : 1965 Arrival Date: 08/29/2023 Time: 08:16 Bed 2 Private MD: Diagnosis: Abdominal pain, Generalized;Nausea with vomiting, unspecified Presentation: 08/28 08:21 Chief complaint: Patient states: vomiting x 5 days ago, left sided chest pain that aa5 began yesterday. 08:21 Coronavirus screen: vomiting. Ebola Screen: Patient denies travel to an Ebola-affected [facility] area in the 21 days before illness onset. Initial Sepsis Screen: Does the patient meet any 2 criteria? No. Patient's initial sepsis screen is negative. Does the patient have a suspected source of infection? No. Patient's initial sepsis screen is negative. Risk Assessment: Do you want to hurt yourself or someone else? Patient reports no desire to harm self or others. Onset of symptoms was August 2023. 08:21 Method Of Arrival: Ambulatory aa5 08:21 Acuity: YUNG 2 aa5 Historical: - Allergies: 08:43 No Known Allergies; aa5 - PMHx: 08:43 Hypertensive disorder; Back pain; Left sinus cyst; aa5 - PSHx: 08:43 Back sx; Knee sx; aa5 - Immunization history:: Adult Immunizations unknown. - Infectious Disease History:: Denies. - Social history:: Smoking status: Patient denies any tobacco usage or history of. Screenin:59 [facility] ED Fall Risk Assessment (Adult) History of falling in the last 3 months, db including since admission No falls in past 3 months (0 pts) Confusion or Disorientation No (0 pts) Intoxicated or Sedated No (0 pts) Impaired Gait No (0 pts) Mobility Assist Device Used No (0 pt) Altered Elimination No (0 pt) Score/Fall Risk Level 0 - 2 = Low Risk Oriented to surroundings, Maintained a safe environment. Abuse screen: Denies threats or abuse. Denies injuries from another. Nutritional screening: No deficits noted. Tuberculosis screening: No symptoms or risk factors identified. Assessment: 09:15 Reassessment: Patient appears in no apparent distress at this time. Patient and/or db family updated on plan of care and expected duration. Pain level reassessed. Patient is alert, oriented x 3, equal unlabored respirations, skin warm/dry/pink. General: Appears in no apparent distress. comfortable, Behavior is calm, cooperative. Pain: Complains of pain in chest Pain does not radiate. Pain began gradually. Neuro: Level of Consciousness is awake, alert, obeys commands, Oriented to person, place, time, situation. Cardiovascular: Reports chest pain, nausea, vomiting, Capillary refill < 3 seconds Patient's skin is warm and dry. Respiratory: Airway is patent Respiratory effort is even, unlabored, Respiratory pattern is regular, symmetrical. 11:40 Reassessment: PATIENT REPORTS HAVING AN EPISODE OF VOMITING. db 12:10 Reassessment: Patient and/or family updated on plan of care and expected duration. Pain rs5 level reassessed. Patient is alert, oriented x 3, equal unlabored respirations, skin warm/dry/pink. Patient denies pain at this time. Patient states feeling better. Patient states symptoms have improved. 12:55 GI: Patient currently denies nausea, pain. rs5 Vital Signs: 08:21 BP 174 / 132; Pulse 105; Resp 19 S; Temp 98.3(O); Pulse Ox 98% on R/A; Weight 111.13 kg aa5 (R); Height 6 ft. 3 in. (R); 09:15 BP 183 / 120; Pulse 84; Resp 18; Pulse Ox 96% on R/A; db 09:47 BP 183 / 120; Pulse 86; ec2 11:45 BP 165 / 112; Pulse 85; Resp 18; Pulse Ox 99% on R/A; db 13:04 BP 166 / 109; Pulse 80; Resp 17; Pulse Ox 99% ; rs5 08:21 Body Mass Index 30.62 (111.13 kg, 190.5 cm) aa5 ED Course: 08:19 Patient arrived in ED. im 08:20 Emory Rodriguez MD is Attending Physician. ec2 08:38 Initial lab(s) drawn, by me, EKG done, by ED staff. Inserted saline lock: 20 gauge in jg11 left antecubital area, using aseptic technique. Blood collected. Missed attempt(s): 22 gauge in right antecubital area. Bleeding controlled, band aid applied, catheter tip intact. 08:38 Patient has correct armband on for positive identification. Bed in low position. Call jg11 light in reach. Side rails up X 1. Side rails up X2. 08:40 Client placed on continuous cardiac and pulse oximetry monitoring. NIBP monitoring rs5 applied. ekg monitor tech on. Pulse ox on. NIBP on. 08:42 Triage completed. aa5 08:46 Krystal Thompson, RN is Primary Nurse. db 09:18 XRAY Chest (1 view) In Process Unspecified. EDMS 09:[address] via wheelchair. db 10:00 CT Abd/Pelvis - IV Contrast Only In Process Unspecified. EDMS 10:23 US Abdomen Limited In Process Unspecified. EDMS 11:51 Repeat lab(s) drawn. by me, sent to lab. EKG done, by ED staff. [email or web address] 12:38 Saturnino Barry MD is Referral Physician. ec2 13:04 No provider procedures requiring assistance completed. rs5 13:05 IV discontinued, intact, bleeding controlled, No redness/swelling at site. Pressure rs5 dressing applied. Administered Medications: 08:45 Drug: NS 0.9% IV 1000 ml IV at 1 bolus Per protocol; 1000 mL bolus Route: IV; Rate: 1 db bolus; Site: left antecubital; 11:40 Follow up: Response: No adverse reaction; IV Status: Completed infusion; IV Intake: db 1000ml 08:45 Drug: Ondansetron IVP 4 mg IVP once; over 2 minutes Route: IVP; Site: left antecubital; db 12:39 Follow up: Response: No adverse reaction db 11:50 Drug: metoCLOPramide IVP 10 mg IVP once; over 1 to 2 minutes Route: IVP; Site: left db antecubital; 12:39 Follow up: Response: No adverse reaction db 12:25 Drug: NS 0.9% IV 500 ml IV at bolus once Route: IV; Rate: bolus; Site: left antecubital;db 12:30 Follow up: Response: No adverse reaction; IV Status: Completed infusion; IV Intake: db 500ml 13:00 Follow up: Response: No adverse reaction rs5 12:25 Drug: Ketorolac IVP 15 mg IVP once Route: IVP; Site: left antecubital; db 13:00 Follow up: Response: No adverse reaction rs5 Medication: 13:04 VIS not applicable for this client. rs5 Intake: 11:40 IV: 1000ml; Total: 1000ml. db 12:30 IV: 500ml; Total: 1500ml. db Outcome: 12:38 Discharge ordered by . ec2 13:05 Discharged to home ambulatory, rs5 13:05 Condition: stable 13:05 Discharge instructions given to patient, family, Instructed on discharge instructions, follow up and referral plans. Demonstrated understanding of instructions, follow-up care, medications, Prescriptions given X 1, 13:06 Patient left the ED. rs5 Signatures: Dispatcher [employer] Flaquita An RN RN aa5 Krystal Thompson RN RN Андрей Blanco RN RN rs5 Hope Jimenez Edwin, MD MD ec2 Noel Dahl [email or web address] Corrections: (The following items were deleted from the chart) 08:42 08:21 Acuity: YUNG 3 aa5 aa5
--- NOTE | 2023-08-29 12:39 | EDPHYS ---
Physician Documentation [facility] Name: Thomas Hadley Age: 58 yrs Sex: Male : 1965 Arrival Date: 08/29/2023 Time: 08:16 Bed 2 Private MD: ED Physician Emory Rodriguez HPI: 08/28 08:31 This 58 yrs old Male presents to ER via Unassigned with complaints of Chest Pain, ec2 Vomiting. 08:31 Patient arrives today for evaluation of nausea and vomiting along with chest pain. ec2 Patient reports she has been experiencing the nausea and vomiting ongoing for 5 days. Patient states that he has been unable to keep p.o. down. Patient reports no fevers or chills, no urinary complaints. Denies any previous abdominal surgeries. Patient reports some associated chest pain as well. Patient reports no specific alleviating or exacerbating factors regarding chest pain. Patient reports no previous history of ACS.. Historical: - Allergies: 08:43 No Known Allergies; aa5 - PMHx: 08:43 Hypertensive disorder; Back pain; Left sinus cyst; aa5 - PSHx: 08:43 Back sx; Knee sx; aa5 - Immunization history:: Adult Immunizations unknown. - Infectious Disease History:: Denies. - Social history:: Smoking status: Patient denies any tobacco usage or history of. ROS: 08:31 Constitutional: as per hpi ec2 Exam: 08:31 Constitutional: GEN: NAD Head: atraumatic Eyes: EOMI Ears: External ears are ec2 normal. CV: Tachycardia LUNGS: no respiratory distress ABD: non-distended, soft, not guarding, not rigid, nontender. SKIN: no evidence of rashes MSK: no evidence of trauma NEURO: moves all extremities equally Vital Signs: 08:21 BP 174 / 132; Pulse 105; Resp 19 S; Temp 98.3(O); Pulse Ox 98% on R/A; Weight 111.13 kg aa5 (R); Height 6 ft. 3 in. (R); 09:15 BP 183 / 120; Pulse 84; Resp 18; Pulse Ox 96% on R/A; db 09:47 BP 183 / 120; Pulse 86; ec2 11:45 BP 165 / 112; Pulse 85; Resp 18; Pulse Ox 99% on R/A; db 13:04 BP 166 / 109; Pulse 80; Resp 17; Pulse Ox 99% ; rs5 08:21 Body Mass Index 30.62 (111.13 kg, 190.5 cm) aa5 MDM: 08:27 Patient medically screened. ec2 08:31 Data reviewed: vital signs. ED course: Patient arrives today for evaluation of nausea ec2 vomiting along with chest pain. Examination remarkable for well-appearing nontoxic dividual is otherwise in no acute distress with reassuring abdominal examination with slight tachycardia noted. EKG obtained, independently reviewed and interpreted by me, shows sinus tachycardia, rate 102, no acute ST segment elevations, intervals are nonconcerning. Will obtain lab work, chest x-ray as well as CT abdomen pelvis. Evaluate for process such as cholecystitis, appendicitis, gastroenteritis as well as ACS.. 09:46 ED course: CBC reassuring. Metabolic profile shows slight hypokalemia with a potassium ec2 of 3.1. As of slight total bili elevation at 3.0. Troponin is within normal ranges. Lipase within normal ranges. Will obtain dedicated ultrasound of the right upper quadrant as well to evaluate for gallbladder pathology. . 10:13 ED course: Chest x-ray shows no acute intrathoracic process. CT abdomen pelvis shows no ec2 acute intra-abdominal process. Does show vertebral body fracture as well as cement placement when compared to previous imaging. 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 Additionally this would not account for the patient's nausea and vomiting. While the patient follow-up with his surgeon. . 10:37 ED course: Ultrasound shows no gallbladder wall thickening or evidence of ec2 cholecystitis, normal biliary tract. . 11:58 ED course: Repeat EKG independently reviewed and interpreted me, shows normal sinus ec2 rhythm, rate of 79, no acute ST segment ovation's, normal nonconcerning.. 08/28 08:31 Order name: CBC with Diff; Complete Time: 09:45 ec2 08/28 08:31 Order name: Troponin HS; Complete Time: 09:45 ec2 08/28 08:31 Order name: CMP; Complete Time: 09:45 ec2 08/28 08:31 Order name: Lipase; Complete Time: 09:45 ec2 08/28 10:38 Order name: Troponin High Sensitivity; Complete Time: 12:33 ec2 08/28 08:31 Order name: XRAY Chest (1 view); Complete Time: 10:12 ec2 08/28 08:31 Order name: CT Abd/Pelvis - IV Contrast Only; Complete Time: 10:12 ec2 08/28 09:47 Order name: US Abdomen Limited; Complete Time: 10:37 ec2 08/28 08:31 Order name: Cardiac monitoring; Complete Time: 08:41 ec2 08/28 08:31 Order name: EKG - Nurse/Tech; Complete Time: 08:41 ec2 08/28 08:31 Order name: IV Saline Lock; Complete Time: 08:41 ec2 08/28 08:31 Order name: Labs collected and sent; Complete Time: 08:41 ec2 08/28 08:31 Order name: O2 Per Protocol; Complete Time: 08:54 ec2 08/28 08:31 Order name: O2 Sat Monitoring; Complete Time: 08:41 ec2 08/28 10:38 Order name: EKG - Nurse/Tech; Complete Time: 11:53 ec2 08/28 10:38 Order name: Misc. Order: repeat ekg/trop; Complete Time: 11:53 ec2 Administered Medications: 08:45 Drug: NS 0.9% IV 1000 ml IV at 1 bolus Per protocol; 1000 mL bolus Route: IV; Rate: 1 db bolus; Site: left antecubital; 11:40 Follow up: Response: No adverse reaction; IV Status: Completed infusion; IV Intake: db 1000ml 08:45 Drug: Ondansetron IVP 4 mg IVP once; over 2 minutes Route: IVP; Site: left antecubital; db 12:39 Follow up: Response: No adverse reaction db 11:50 Drug: metoCLOPramide IVP 10 mg IVP once; over 1 to 2 minutes Route: IVP; Site: left db antecubital; 12:39 Follow up: Response: No adverse reaction db 12:25 Drug: NS 0.9% IV 500 ml IV at bolus once Route: IV; Rate: bolus; Site: left antecubital;db 12:30 Follow up: Response: No adverse reaction; IV Status: Completed infusion; IV Intake: db 500ml 13:00 Follow up: Response: No adverse reaction rs5 12:25 Drug: Ketorolac IVP 15 mg IVP once Route: IVP; Site: left antecubital; db 13:00 Follow up: Response: No adverse reaction rs5 Disposition Summary: 08/29/23 12:38 Discharge Ordered Notes: Location: Home ec2 Condition: Stable ec2 Diagnosis - Abdominal pain, Generalized ec2 - Nausea with vomiting, unspecified ec2 Followup: ec2 - With: Private Physician - When: - Reason: Recheck today's complaints Followup: ec2 - With: Saturnino Barry MD - When: - Reason: Recheck today's complaints Discharge Instructions: - Discharge Summary Sheet ec2 - Abdominal Pain, Adult ec2 Forms: - Medication Reconciliation Form ec2 - Antibiotic Education ec2 - Prescription Opioid Use ec2 - Patient Portal Instructions ec2 - Leadership Thank You Letter ec2 Prescriptions: - Reglan 10 mg Oral Tablet - take 1 tablet ORAL route every 6 hours . take 30 minutes before meals and at ec2 bedtime; 100 tablet; Refills: 0, Product Selection Permitted Signatures: Dispatcher [employer] EDFlaquita Chowdhury RN RN aa5 Krystal Thompson RN RN db Emory Rodriguez MD MD ec2 Андрей Garcia RN rs5 Corrections: (The following items were deleted from the chart) 08:31 08:31 Abdomen Pelvis W Con+CT.RAD.BRZ ordered. EDMS EDMS 10:38 10:38 Troponin High Sensitivity+C.LAB.BRZ ordered. EDMS EDMS
[2023-08-29 13:36] VITALS: BP 166/109; TEMP 98.3; O2SAT 99
--- NOTE | 2023-08-30 14:02 | EKG ---
Test Date: 2023-08-29 Test Time: 08:28:10 Tree Pruner: NORI MEASUREMENT RESULTS: Intervals: Rate: 102 DE: 160 QRSD: 82 QT: 364 QTc: 474 [place]: P: 53 DE: 160 QRS: 34 T: 33 INTERPRETIVE STATEMENTS: Sinus tachycardia Otherwise normal ECG Compared to ECG 03/07/2023 12:07:52 No significant changes Electronically Signed On 08-30-23 13:58:55 CDT by David Dong
--- NOTE | 2023-08-31 13:09 | EKG ---
Test Date: 2023-08-29 Test Time: 11:46:01 Fruit Or Nut Farmer: OSVALDO MEASUREMENT RESULTS: Intervals: Rate: 79 MT: 156 QRSD: 86 QT: 428 QTc: 490 [place]: P: 40 MT: 156 QRS: 43 T: 39 INTERPRETIVE STATEMENTS: Normal sinus rhythm Prolonged QT Abnormal ECG Compared to ECG 08/29/2023 08:28:10 Prolonged QT interval now present Sinus tachycardia no longer present Electronically Signed On 08-31-23 13:07:51 CDT by David Dong
== END 2023-08-29 13:06 | disposition home or self-care (01) ==
LOC: ER 08:16
DX: R10.84 Generalized abdominal pain (principal); R11.2 Nausea with vomiting, unspecified; I10 Essential (primary) hypertension
CPT/HCPCS: 96361; 93005; 85025; 36415; 84484 ×2; 83690; 80053; 74177; 71045; 76705; 96375; 96374; 99285; Q9967; J2765; J2405; J7040; J7030